=== PATIENT | male | born 1990 | race Caucasian/White ===

== ENCOUNTER 2019-09-07 18:24 | Emergency (ER) | payer OTHER ==
[2019-09-07 18:32] VITALS: Ht 175.3 cm
[2019-09-07 18:58] LABS: BASOPHIL % 0.3 % (0-2); PLATELET COUNT 146 x10^3mcL (130-400)
[2019-09-07 18:59] LABS: RED CELL DISTRIBUTION WIDTH 14.9 % (11.5-14.5)
[2019-09-07 19:08] LABS: BILIRUBIN TOTAL 0.4 mg/dL (0.20-1.00); CALCIUM 8.2 mg/dL (8.5-10.1); CARBON DIOXIDE 22.2 mmol/L (21-32); POTASSIUM SERUM 4.2 mmol/L (3.5-5.1)
[2019-09-07 19:12] LABS: ALBUMIN 2.9 g/dL (3.4-5.0); TOTAL PROTEIN, SERUM 5.6 g/dL (6.4-8.2)
[2019-09-07 21:09] VITALS: BP 147/95
== END 2019-09-07 20:45 | disposition home or self-care (01) ==
LOC: ED 18:24
PROVIDERS: Emergency Medicine
DX: K52.9 Noninfective gastroenteritis and colitis, unspecified (principal)
CPT/HCPCS: J1885; J2405

== ENCOUNTER 2020-07-11 14:07 | Inpatient (IN) | payer OTHER, MEDICAID ==
[~2020-07-11] VITALS: Ht 172.7 cm; Wt 60.8 kg
[~2020-07-11 14:07] MED LIST: AUG500 PO; METOPROLOL TART25 M1 PO; PRO PO; PROAIR RES117 MCG/Ac INH; RAYOS5 MG PO
--- NOTE | 2020-07-11 14:35 | NUR ---
PT BRENDA, C/O LLQ PAIN WITH N/V/D STARTED YESTERDAY AFTER EATING, PT ON MONITOR.
[2020-07-11 14:45] LABS: BASOPHIL % 0.3 % (0-2); PLATELET COUNT 166 x10^3mcL (130-400)
[2020-07-11 14:55] LABS: RED CELL DISTRIBUTION WIDTH 15.2 % (11.5-14.5)
[2020-07-11 15:19] LABS: BILIRUBIN TOTAL 0.32 mg/dL (0.20-1.00); CALCIUM 8.1 mg/dL (8.5-10.1); CARBON DIOXIDE 20.5 mmol/L (21-32); TOTAL PROTEIN, SERUM 6.4 g/dL (6.4-8.2)
--- NOTE | 2020-07-11 15:19 | NUR ---
PT RETURNED FROM CT. REPORTS IMPROVEMENT S/P GI COCKTAIL.
[2020-07-11 15:22] LABS: ALBUMIN 2.8 g/dL (3.4-5.0)
[2020-07-11 15:24] LABS: CREATININE SERUM 14.8 mg/dL (0.7-1.3); POTASSIUM SERUM 5.9 mmol/L (3.5-5.1)
--- NOTE | 2020-07-11 17:00 | NUR ---
MEDICAL STUDENTS AT BEDSIDE. PT REMAINS ALERT AND ORIENTED, ROOM, AIR, INTERMITTENT NAUSEA. PT REPORTS ONE EPISODE OF VOMITING SINCE COMING TO THE ER.
--- NOTE | 2020-07-11 18:09 | NUR ---
REPORT CALLED TO MATEO TRAN.
--- NOTE | 2020-07-11 18:16 | NUR ---
PT BELONGING INCLUDES CELL PHONE, CLOTHES, SANDALS, HAT. PT REFUSING HOSPITAL GOWN AT THIS TIME.
[2020-07-11 19:12] VITALS: BP 186/113
--- NOTE | 2020-07-11 19:21 | NUR ---
RECEIVED PT FROM ER, PT ADMIT FOR ENTERITIS, PT IS A/O X4, VERBAL RESPONSIVE. LUNG SOUND CLEAR BILATERAL, NO COUGH, NO SOB. PT IS ON TELE 9, NSR, DENY ANY CHEST PAIN OR DISCOMFORT, BOWEL SOUND PRESENT ALL 4 QUADRANTS, C/O ABD PAIN 10/10, PEDAL PULSE PRESENT BOTH FEET, NO EDEMA, IV AT RIGHT HAND, NO LEAKING, NO INFILTRATION. AV SHUNT AT LEFT FA, B/T PRESENT. LAST DIALYSIS WAS YESTERAY. ALL ADLS ASSIST, ALL NEED MET, CALL LIGHT IN REACH, WILL CONTINUE TO MONITOR.
--- NOTE | 2020-07-11 20:17 | NUR ---
PT C/O PAIN. SAYING [employer] NOT REALLY WORKING. DR. COATES MADE AWARE. WAITING FOR ORDERS. WILL CONTINUE TO MONITOR.
[2020-07-11 21:18] VITALS: BP 154/108
--- NOTE | 2020-07-11 21:41 | NUR ---
PT C/O ABDOMINAL PAIN SAYING [employer] IS NOT REALLY WORKING. DR. REID NOTIFIED. WAITING FOR ORDERS. WILL CONTINUE TO MONITOR.
--- NOTE | 2020-07-11 23:05 | NUR ---
PT MEDICATION FROM OUTSIDE AT BEDSIDE. INSTRUCTED THE PT NOT TO TAKE HOME MEDICATION BECAUSE HE HAS THE SAME ONE SCHEDULED FROM HOSPITAL TO AVOID DOUBLE OR OVER DOSING. PT VERBALIZED UNDERSTANDING. WILL CONTINUE TO MONITOR.
--- NOTE | 2020-07-12 01:47 | NUR ---
PT C/O ABDOMINAL PAIN. GAVE PT MORPHINE IVP. PT TOLERATED IT WELL. WILL CONTINUE TO MONITOR.
[2020-07-12 02:59] LABS: CALCIUM 8.4 mg/dL (8.5-10.1); CARBON DIOXIDE 17.8 mmol/L (21-32)
[2020-07-12 03:00] LABS: CREATININE SERUM 15.4 mg/dL (0.7-1.3)
[2020-07-12 04:55] VITALS: BP 167/112
--- NOTE | 2020-07-12 05:51 | NUR ---
PT C/O PAIN AND DRY HEAVING IN THE BATHROOM. GAVE PT MORPHINE IVP FOR PAIN AND ZOFRAN IVP FOR VOMITING. PT TOLERATED IT WELL. PT LOWEST BP 167/112, HR 93. GAVE PT 0900 SCHEDULED METROPOLOL PO AT THIS TIME. PT TOLERATED IT WELL. WILL CONTINUE TO MONITOR.
[2020-07-12 06:49] VITALS: BP 148/102
[2020-07-12 07:22] LABS: BASOPHIL % 0.6 % (0-2); PLATELET COUNT 170 x10^3mcL (130-400)
[2020-07-12 07:28] LABS: RED CELL DISTRIBUTION WIDTH 15.1 % (11.5-14.5)
[2020-07-12 07:32] LABS: CALCIUM 8.8 mg/dL (8.5-10.1); CARBON DIOXIDE 18.7 mmol/L (21-32); MAGNESIUM 2.1 mg/dL (1.8-2.4); PHOSPHOROUS 5.3 mg/dL (2.5-4.9)
[2020-07-12 08:09] LABS: CREATININE SERUM 15.5 mg/dL (0.7-1.3)
[2020-07-12 08:10] LABS: POTASSIUM SERUM 6.1 mmol/L (3.5-5.1)
[2020-07-12 08:22] VITALS: BP 139/94
[2020-07-12 12:00] VITALS: BP 142/94
[2020-07-12 16:14] VITALS: BP 149/95
--- NOTE | 2020-07-12 18:12 | NUR ---
09 DR. HICKMAN NOTIFIED OF K 6.1 ORDERED CA GLUCONATE, BUT HEMODIALYSIS NURSE SARA ELMORE STATED NOT TO PATIENT ABOUT TO COMMNECE DIALYSIS. PATIENT TOLERATED ALL MEDICATONS AND CARE WELL. NO BM AT HIS TIME. WILLCONTINUE TO CHERYL.
--- NOTE | 2020-07-12 19:59 | NUR ---
PATIENT RECEIVED AWAKE, ALERT, ORIENTED X4 IN BED. RESPIRATION EVEN AND UNLABORED, ON ROOM AIR. SALINE LOCK TO R WRIST PATENT AND INTACT. C/O ON AND OFF ABDOMINAL PAIN, LBM 7/3. HEMODIALYSIS MWF, LAST HD TODAY, OUTPUT 1 LITER, AV SHUNT TO L FOREARM PATENT AND INTACT. AMBULATORY. SKIN DRY AND INTACT. ON TELE #9. WILL CONTINUE TO MONITOR.
[2020-07-12 21:13] VITALS: BP 169/97
[2020-07-13] VITALS (7 sets, daily range): BP systolic 142–167; BP diastolic 90–108
--- NOTE | 2020-07-13 06:20 | NUR ---
PATIENT RESTING IN BED. RESPIRATION EVEN AND UNLABORED, ON ROOM AIR. SALINE LOCK TO R HAND PATENT AND INTACT. AV SHUNT TO L FOREARM +THRILL AND BRUIT. DENIES DISCOMFORT/PAIN AT THIS TIME. ASSISTED WITH NEEDS. SAFETY OBSERVED. PLACED BED IN THE LOWEST POSITION. PLACED CALL LIGHT WITHIN REACH AT ALL TIMES.
--- NOTE | 2020-07-13 07:30 | NUR ---
PT IS AAOX4. MED SURG PT. LUNG SOUNDS CTA. ON R/A. ABDOMEN SOFT, NONTENDER, NONDISTENDED. BOWEL SOUNDS ACTIVE X4. DENIES N/V. C/O LOOSE STOOLS. IV CATH TO R WRIST INTACT, S/L. FLUSHED AND PATENT, SITE WNL. PT DENIES AB PAIN AND DICOMFORT. NO DISTRESS NOTED. CALL LIGHT WITHIN REACH.
[2020-07-13 07:36] LABS: BASOPHIL % 0.2 % (0-2); PLATELET COUNT 136 x10^3mcL (130-400)
[2020-07-13 07:57] LABS: CALCIUM 7.6 mg/dL (8.5-10.1); CARBON DIOXIDE 27.2 mmol/L (21-32); MAGNESIUM 1.8 mg/dL (1.8-2.4); PHOSPHOROUS 5.7 mg/dL (2.5-4.9); POTASSIUM SERUM 4.3 mmol/L (3.5-5.1)
[2020-07-13 07:59] LABS: CREATININE SERUM 10.7 mg/dL (0.7-1.3)
[2020-07-13 08:58] LABS: RED CELL DISTRIBUTION WIDTH 15.1 % (11.5-14.5)
--- NOTE | 2020-07-13 09:19 | NUR ---
COLACE PO HELD DUE TO C/O LOOSE STOOLS. CIPRO IVPB, AND SCHEDULED PO MEDS GIVEN AND TOLERATED WELL. PT DENIES ABDOMINAL PAIN AND DISCOMFORT AT THIS TIME. NO N/V. CALL LIGHT WITHIN REACH.
--- NOTE | 2020-07-13 11:26 | NUR ---
FLAGYL IVPB GIVEN. REPORTED TO JOSR COELLO THAT PT'S B/P 163/106. PT DENIES KHAN AND DIZZINESS. MODE STATED TO WAIT A LITTLE WHILE AND RETAKE THE B/P. PT MADE AWARE.
--- NOTE | 2020-07-13 12:30 | NUR ---
BLOOD PRESSURE 156/106 (112). PT DENIES KHAN AND DIZZINESS. WILL CONTINUE TO MONITOR.
--- NOTE | 2020-07-13 13:10 | NUR ---
IV CATH TO RW LEAKING, REMOVED INTACT. SITE WNL, COVERED WITH CDI DRESSING. NEW IV CATH 22G STARTED ON 3RD ATTEMPT. SITE WNL. COVERED WITH CDI DRESSING. IVF INITIATED. NO S/S OF INFILTRATION NOTED. TYLENOL PO PRN GIVEN ORDERED FOR LOWER BACK ACHING BACK PAIN 02/15. PT REPOSITIONED FOR COMFORT. CALL LIGHT WITHIN REACH. BED IN LOWEST POSITION.
--- NOTE | 2020-07-13 13:54 | NUR ---
REPORTED TO DR. LUU THAT PT'S B/P IS TRENDING HIGH 156/95 (112) AND PT'S PHOS LEVEL = 5.7. RECEIVED ORDER FOR PHOSLO ONE TAB TID WITH MEALS AND CATAPRES 0.1MG PO Q 6 HOURS PRN FOR SBP > 160MMHG. ORDERS NOTED AND CARRIED OUT. PT MADE AWARE.
--- NOTE | 2020-07-13 18:24 | NUR ---
PT REQUESTED TO HAVE FOOD FROM OUTSIDE, REPORTED TO JOSR COELLO. MODE STATED NO PT NEEDS TO MAINTAIN STRICT RENAL DIET. IV CATH TO RFA PATENT. SITE WNL. PT DENIES ABDOMINAL PAIN. NO DISTRESS NOTED. CALL CARE WILL BE ENDORSED TO ANGELICA TRAN.
--- NOTE | 2020-07-13 19:01 | NUR ---
REASSESSED PT B/P WHICH IS NOW 146/98 (113).
--- NOTE | 2020-07-13 19:10 | NUR ---
ENDORSED ALL CARE TO CHELSEA WRIGHT.
--- NOTE | 2020-07-13 19:15 | NUR ---
RECEIVED PT AWAKE ALERT AND VERBALLY RESPONSIVE.DENIES CHESTPAIN AT THIS TIME.LATEST BP 143/90 MMHG,HR 73.AV SHUNT TO LFA WITH GOOD BRUIT.PT OLIGURIC LAST HD 07/12/20.WILL CONTINUE TO MONITOR.
--- NOTE | 2020-07-13 21:34 | NUR ---
PT C/O "ACID LIKE" PAIN.DR. MASRHALL MADE AWARE WITH NEW ORDERS MADE AND WILL CARRY OUT.
--- NOTE | 2020-07-14 04:37 | NUR ---
PT SLEPT WELL.NO ASE NOTED FROM FLAGYL IV ATB.SIMETHICONE CHEWABLE PO GIVEN X1 WITH GOOD RESULT.ALL NEEDS MET.WILL CONTINUE TO MONITOR.
[2020-07-14 05:39] VITALS: BP 147/95
[2020-07-14 07:24] LABS: BASOPHIL % 0.5 % (0-2); PLATELET COUNT 149 x10^3mcL (130-400); RED CELL DISTRIBUTION WIDTH 14.5 % (11.5-14.5)
[2020-07-14 07:38] LABS: CALCIUM 7.1 mg/dL (8.5-10.1); CARBON DIOXIDE 26.1 mmol/L (21-32); POTASSIUM SERUM 4.5 mmol/L (3.5-5.1)
[2020-07-14 07:39] LABS: CREATININE SERUM 12.8 mg/dL (0.7-1.3)
--- NOTE | 2020-07-14 07:50 | NUR ---
JOSR COELLO SPOKE WITH PT REGARDING POC. PT IS TO DISCHARGE TODAY AND WILL RECEIVE PRESCRIPTION FOR FLAGYL AND CIPRO. PT IS TO CONTINUE WITH DIALYSIS ON WEDNESDAY. PT AGREED WITH POC.
--- NOTE | 2020-07-14 08:22 | NUR ---
CIPRO IVPB GIVEN. SCHEDULED PO MEDS GIVEN AND TOLERATED WELL. B/P 147/95, HR 64. PT DENIES N/V, AND ABDOMINAL PAIN. PT STATES ONCE HE IS READY TO DISCHARGE A FAMILY MEMBER CAN PICK HIM UP WITHIN AN HOUR. CALL LIGHT WITHIN REACH.
[2020-07-14 08:51] VITALS: BP 152/98
[2020-07-14] MEDS ORDERED: CIPRO500 MG PO (09:29)
[2020-07-14] MEDS ORDERED: FLA500 PO (09:30)
[2020-07-14] MEDS ORDERED: PHOS PO (09:31)
--- NOTE | 2020-07-14 09:37 | NUR ---
PT IS AAOX4. TELE [address] READING NSR. LUNG SOUNDS CTA, ON R/A. IV CATH TO RFA S/L. SITE WNL. ABDOMEN SOFT, NONTENDER, NONDISTENDED. BOWEL SOUNDS ACTIVE X4 QUADS. DENIES AB PAIN, N/V. C/O DIARRHEA. CALL LIGHT WITHIN REACH. BED IN LOWEST POSITION.
[2020-07-14 10:12] VITALS: BP 152/98
--- NOTE | 2020-07-14 11:00 | NUR ---
ZOSYN IVPB GIVEN. RESP EVEN AND UNLABORED. NO DISTRESS NOTED. PT DENIES N/V, AND ABDOMINAL PAIN. PT FAMILY WILL BE AT HOSPITAL AT 1030 FOR [facility]. CALL LIGHT WITHIN REACH.
--- NOTE | 2020-07-14 11:45 | NUR ---
PT DISCHARGED TO HOME IN NO DISTRESS. DISCHARGE INSTRUCTIONS REVIEWED. ALL QUESTIONS AND CONCERNS ADDRESSED. PT INFORMED THAT DISCHARGE MEDICATION ORDERS HAS HAVE BEEN SEND TO PT'S INDICATED PHARMACY. TELE 9 REMOVED FROM PT AND RETURNED TO TRIAGE CLINICIAN. IV REMOVED FROM RFA INTACT, SITE WNL. COVERED WITH GAUZE AND TAPE. PT DENIES PAIN UPON DISCHARGE. ALL PERSONAL BELONGINGS TAKEN WITH PT. PT WALKED TO LOBBY ACCOMPANIED BY THIS RN.
== END 2020-07-14 11:50 | disposition home or self-care (01) | DRG 391 ==
LOC: ED 14:07 → DU 17:09 → MU 17:09 → DU 18:39
PROVIDERS: Emergency Medicine; ADMIT Internal Medicine; ATTEND Internal Medicine
PROC: 5A1D70Z Performance of Urinary Filtration, Intermittent, Less than 6 Hours Per Day (ICD-10-PCS; principal; 2020-07-12)
PROC: 5A1D70Z Performance of Urinary Filtration, Intermittent, Less than 6 Hours Per Day (ICD-10-PCS; 2020-07-14)
DX: K52.9 Noninfective gastroenteritis and colitis, unspecified (principal); N18.6 End stage renal disease; I12.0 Hypertensive chronic kidney disease with stage 5 chronic kidney disease or end stage renal disease; Z94.0 Kidney transplant status; Z79.899 Other long term (current) drug therapy; J45.909 Unspecified asthma, uncomplicated; E87.5 Hyperkalemia
CPT/HCPCS: 82962; 87046; 87046-59; G0378; J0610; J0696; J0744; J2270; J2405; J3490; J3535; J7040; J7050; J7507; J7512